=== PATIENT | female | born 1980 | race African-American/Black ===

== ENCOUNTER 2018-07-18 02:33 | Emergency (ER) | payer OTHER ==
[~2018-07-18] VITALS: Ht 165.1 cm; Wt 80.3 kg
[~2018-07-18 02:33] MED LIST: PRED50TA PO; TRAM1TAB4 PO
[2018-07-18] MEDS ORDERED: ACETAMINOPHEN 325 MG TABLET. PO ONE (03:45)
[2018-07-18 03:47] VITALS: BP 115/81
--- NOTE | 2018-07-18 03:51 | PHYS DOC ---
Past Medical History Past Medical History: No Pertinent History Past Surgical History: No Surgical History Alcohol Use: Occasionally Drug Use: None Adult General Chief Complaint Chief Complaint: FINGER INJURY HPI HPI Patient is a 38 year old female presenting after injuring her left fifth digit at work yesterday. Patient notes she was stacking boxes and then "jammed" her finger. Patient felt immediate pain and was unable to bend the finger. Patient has continued to have pain in the finger mostly over the distal portion. Patient notes she took some Aleve last at 5 PM.] Review of Systems Review of Systems Constitutional: Denies fever or chills [] Eyes: Denies change in visual acuity, redness, or eye pain [] HENT: Denies nasal congestion or sore throat [] Respiratory: Denies cough or shortness of breath [] Cardiovascular: Denies chest pain or palpitations[] GI: Denies abdominal pain, nausea, vomiting, bloody stools or diarrhea [] : Denies dysuria or hematuria [] Musculoskeletal: Denies back pain or neck pain [] Integument: Denies rash or skin lesions [] Neurologic: Denies headache, focal weakness or sensory changes [] Endocrine: Denies polyuria or polydipsia [] Complete systems were reviewed and found to be within normal limits, except as documented in this note. Current Medications Current Medications Current Medications Medications (Trade) Dose Ordered Sig/Natalya Start Time Stop Time Status Last Admin Dose Admin Acetaminophen (Tylenol) 650 mg 1X ONCE 07/18/18 03:45 07/18/18 03:46 DC 07/18/18 04:00 650 MG Allergies Allergies Allergies Coded Allergies Type Severity Reaction Last Updated Verified No Known Drug Allergies 09/27/16 No Physical Exam Physical Exam Constitutional: Well developed, well nourished, no acute distress, non-toxic appearance. [] HENT: Normocephalic, atraumatic, oropharynx moist, no oral exudates, nose normal. [] Eyes: PERRL, EOMI, conjunctiva normal, no discharge. [] Neck: Normal range of motion, no tenderness, supple, no meningismus. [] Cardiovascular:Heart rate regular rhythm, no murmur [] Lungs & Thorax: Bilateral breath sounds clear to auscultation [] Abdomen: Bowel sounds normal, soft, no tenderness. [] Skin: Warm, dry, no erythema, no rash. Small area of ecchymosis at the distal tip of the left fifth digit. [] Back: No tenderness, no CVA tenderness. [] Extremities: Bilateral lower extremities and upper right extremity have full range of motion, no tenderness or no edema. Left hand fifth digit has tenderness to palpation at the DIP and distal phalanges. Range of motion limited due to pain in the left fifth digit. Decreased sensation noted over the lateral aspects of the distal fifth digit. Perfusion is intact over the left fifth digit.[] Neurologic: Alert and oriented X 3, normal motor function, normal sensation other than some decreased sensation over the lateral distal aspects of the left fifth digit.[] Psychologic: Affect normal, judgement normal, mood normal. [] Current Patient Data Vital Signs Vital Signs Date Time Temp Pulse Resp B/P (MAP) Pulse Ox O2 Delivery O2 Flow Rate FiO2 07/18/18 03:47 98.6 78 18 115/81 (92) 97 Room Air 98.6 EKG EKG [] Radiology/Procedures Radiology/Procedures [] Course & Med Decision Making Course & Med Decision Making 38-year-old female presenting after injuring her left fifth digit at work. Patient notes she "jammed" her finger and has been unable to and the finger without pain in the finger has pain over palpation of the distal left fifth digit. All other joints and phalanges are normal. Preliminary reading of the 3 view radiograph by ED physician does not show any signs of fracture. Metal splint placed on finger and patient given instructions on [id number] pain management.Patient stable for discharge with outpatient follow-up with PCP and or orthopedic surgeon Dr. Lee. Discussed findings and plan with patient, who acknowledge understanding and agreement.[] Dragon Disclaimer Dragon Disclaimer This electronic medical record was generated, in whole or in part, using a voice recognition dictation system. Departure Departure Impression: Primary Impression: Finger sprain Disposition: 01 HOME, SELF-CARE Condition: STABLE Referrals: NO PCP (PCP) MINDI LEE MD Orthopaedic surgeon Patient Instructions: Finger Sprain, [id number] Splinting Splinting : Location: left fifth digit Pre-Made Type: metal Splint: volar Pre-Proc Neuro Vasc Exam: normal Post-Proc Neuro Vasc Exam: normal Problem Qualifiers Primary Impression: Finger sprain Encounter type: initial encounter Finger: little finger Sprain of finger site: interphalangeal joint Laterality: left Qualified Codes: S63.637A - Sprain of interphalangeal joint of left little finger, initial encounter MANE BESS DO Jul 18, 2018 03:51
--- NOTE | 2018-07-18 07:46 | RAD ---
Left little finger, 3 views, 07/18/2018: HISTORY: Finger injury, pain and swelling No fracture or dislocation is identified. IMPRESSION: No acute bony abnormality is detected. Electronically signed by: Kendall Dewitt MD (07/18/2018 7:43 AM) [facility]
== END 2018-07-18 04:35 | disposition home or self-care (01) ==
LOC: ER 02:33
DX: S63.637A Sprain of interphalangeal joint of left little finger, initial encounter (principal); W23.1XXA Caught, crushed, jammed, or pinched between stationary objects, initial encounter; Y93.89 Activity, other specified; Y92.89 Other specified places as the place of occurrence of the external cause; Y99.0 Civilian activity done for income or pay
CPT/HCPCS: 29130; 73140; 99284

== ENCOUNTER 2018-07-21 14:53 | Emergency (ER) | payer OTHER ==
[~2018-07-21] VITALS: Ht 165.1 cm; Wt 80.3 kg
[2018-07-21 15:00] VITALS: BP 140/97
[2018-07-21] MEDS: LIDOCAINE 1% Multi-Dose 50 ML VIAL. INJ ONE (15:15)
--- NOTE | 2018-07-21 15:15 | PHYS DOC ---
Past Medical History Past Medical History: No Pertinent History Past Surgical History: Other Additional Past Surgical Histo: DNC Alcohol Use: Occasionally Drug Use: None Adult General Chief Complaint Chief Complaint: FINGER INJURY HPI HPI Patient is a 38 year old female with no significant medical history who presents today complaining of infection to the left pinky finger that began yesterday. Patient states 4 days ago she jammed her left pinky finger. She states she was seen in the ED 3 days ago and had negative x-rays. She states since yesterday she has noted the finger is more swollen, warn and has yellow discoloration around the nail bed. Patient denies any new injuries. Tetanus is not up-to-date. Review of Systems Review of Systems Constitutional: Denies fever or chills [] Musculoskeletal: Denies back pain or joint pain [] Integument: Denies rash or skin infection to the left pinky finger Neurologic: Denies headache, focal weakness or sensory changes [] All other systems were reviewed and found to be within normal limits, except as documented in this note. Current Medications Current Medications Current Medications Medications (Trade) Dose Ordered Sig/Natalya Start Time Stop Time Status Last Admin Dose Admin Acetaminophen/ Hydrocodone Bitart (Lortab 5/325) 2 tab 1X ONCE 07/21/18 15:30 07/21/18 15:31 DC 07/21/18 15:23 2 TAB Diphtheria/ Tetanus/Acell Pertussis (Boostrix) 0.5 ml ONCE ONCE 07/21/18 15:30 07/21/18 15:31 DC 07/21/18 15:23 0.5 ML Lidocaine HCl (Lidocaine 1% 50ml Vial) 20 ml 1X ONCE 07/21/18 15:15 07/21/18 15:16 DC 07/21/18 15:15 20 ML Allergies Allergies Allergies Coded Allergies Type Severity Reaction Last Updated Verified No Known Drug Allergies 09/27/16 No Physical Exam Physical Exam Constitutional: Well developed, well nourished, no acute distress, non-toxic appearance. [] Skin: Warm, dry, patient has acrylic nails on with pink nail honduran, nail bed surrounding the left pinky finger with mild soft tissue swelling, with surround yellowness consistent with paronychia and erythema. Tenderness on palpation to the finger. Slightly Limited range of motion to the left pinky finger especially at the DIP joint due to pain and swelling. +2 left radial pulse. Cap refill less than 2 seconds the left pinky finger. Back: No tenderness, no CVA tenderness. [] Extremities: No tenderness, no cyanosis, no clubbing, ROM intact, no edema. [] Neurologic: Alert and oriented X 3, normal motor function, normal sensory function, no focal deficits noted. [] Psychologic: Affect normal, judgement normal, mood normal. [] Current Patient Data Vital Signs Vital Signs Date Time Temp Pulse Resp B/P (MAP) Pulse Ox O2 Delivery O2 Flow Rate FiO2 07/21/18 15:00 98.2 95 18 140/97 (111) 94 Room Air 98.2 EKG EKG [] Radiology/Procedures Radiology/Procedures Indication: Paronychia infection left pinky finger Procedure: The patient was positioned appropriately. Local anesthesia was noted. An incision was then made over the apex of the lesion and moderate amount of yellow purulent bloody material was expressed. The drainage cavity was irrigated and covered with sterile gauze. The patients tetanus status updated as needed. The patient tolerated the procedure well. Complications: none.[] Course & Med Decision Making Course & Med Decision Making Pertinent Labs and Imaging studies reviewed. (See chart for details) This is a 38-year-old female patient who presents to the ED with paronychia infection of the left pinky finger after an injury 4 days ago. She had x-rays done 3 days ago that were negative. Patient was given tetanus. Paronychia was drained by me as noted in procedures. There is cellulitis around the finger. Patient will be discharged on Bactrim. Follow-up with primary care doctor in 1- 2 weeks. Instructed to soak the finger in Epsom salts and warm water twice a day. Provided return precautions and discharged in stable condition. i was working in the ED at the time of this visit. i was available for consulation at all times in the ED, i was not directly involved in the care of this patient. Dragon Disclaimer Dragon Disclaimer This electronic medical record was generated, in whole or in part, using a voice recognition dictation system. Departure Departure Impression: Primary Impression: Paronychia of finger of left hand Additional Impression: Cellulitis of finger of left hand Disposition: 01 HOME, SELF-CARE Condition: STABLE Referrals: RAKESH MIRAMONTES DO (PCP) follow up with your doctor in one week Patient Instructions: Cellulitis, [id number], Paronychia, [id number] Additional Instructions: You were evaluated for paronychia infection to the left pinky finger. Please remove the nail honduran from the affected finger today. Please take the prescribed antibiotics until completed. Please follow-up with your primary care doctor in 1-2 weeks. Please soak the finger in warm water with Epsom salt 2-3 times a day. Come back to the ED at any point symptoms worsen. Scripts Sulfamethoxazole/Trimethoprim (BACTRIM DS TABLET) 1 Each Tablet 1 TAB PO BID, #20 TAB Prov: GUIDO TOUSSAINT APRN 07/21/18 Hydrocodone/Apap 5-325 (NORCO 5-325 TABLET) 1 Each Tablet 1 TAB PO Q6HRS, #16 TAB Prov: GUIDO TOUSSAINT APRN 07/21/18 Problem Qualifiers GUIDO TOUSSAINT APRN Jul 21, 2018 15:15 MARI SMITH MD Jul 21, 2018 16:54
[2018-07-21] MEDS ORDERED: HYDROcodone/APAP 5/325MG 1 TAB TABLET PO ONE (15:30)
[2018-07-21] MEDS ORDERED: DIPHTH,PERTUSS(ACELL),TET TOX 0.5 ML DISP.SYRIN. VAX IM ONE (15:30)
[2018-07-21] MEDS ORDERED: SULF1TAB24 PO (15:53)
[2018-07-21] MEDS ORDERED: HYDR-971 PO (15:53)
== END 2018-07-21 15:58 | disposition home or self-care (01) ==
LOC: ER 14:53
DX: L03.012 Cellulitis of left finger (principal)
CPT/HCPCS: 10060; 90471; 90715; 99283-25